=== PATIENT | female | born 1980 | race Caucasian/White ===

== ENCOUNTER → 2017-01-06 | Outpatient (CLI) | payer OTHER | LOC: CIMAGING 08:15 | PROVIDERS: ATTEND Physician Assistant Medical | DX: R10.10 Upper abdominal pain, unspecified (principal); R16.0 Hepatomegaly, not elsewhere classified; Z90.3 Acquired absence of stomach [part of] | CPT/HCPCS: 76700-PO ==

== ENCOUNTER → 2017-04-01 | Outpatient (CLI) | payer OTHER | LOC: CIMAGING 14:33 | PROVIDERS: ATTEND Family Medicine | DX: Z12.31 Encounter for screening mammogram for malignant neoplasm of breast (principal); Z80.3 Family history of malignant neoplasm of breast | CPT/HCPCS: G0202 ==

== ENCOUNTER 2017-11-04 12:09 | Emergency (ER) | payer OTHER ==
[2017-11-04 12:20] VITALS: RESP 16; TEMP 98.2; O2SAT 98
--- NOTE | 2017-11-04 13:29 | EDPHY ---
H & P Time Seen by Provider: 11/04/17 12:28 HPI/ROS: HPI Left calf pain. Concerned about DVT. 37-year-old female by private vehicle. This patient has a history of a superficial thrombophlebitis involving the medial aspect of her left upper calf area diagnosed in June of this year. She had a negative D-dimer at that time. She presents with atraumatic left upper calf pain and popliteal fossa pain which is worse with walking since yesterday. ROS: Constitutional: No fever, no chills. No weakness. Respiratory: No cough. No shortness of breath. Cardiac: No chest pain, no palpitations. Musculoskeletal: No back pain. No neck pain. As above. Skin: No rashes. Neurological: No focal weakness or altered sensation. Past medical history: As above. Social history: Nonsmoker. No alcohol. Works here at the hospital. Physical Exam: General Appearance: Alert, no distress. This patient is responding to questions appropriately and in full sentences. This patient appears well- hydrated and well-nourished. Eyes: Pupils equal and round no pallor or injection. No lid edema, erythema or injection. Left lower extremity exam: She does have some vague ache tenderness on palpation proximal lateral calf musculature into the popliteal fossa. No soft tissue swelling, erythema, ecchymosis noted to this area. Negative Collette sign. There is no asymmetric swelling in comparison to the right lower extremity. Left lower extremity is neurovascularly intact. Neurological: Motor sensory function is grossly intact. Cranial nerves are normal. Gait is normal. Skin: Warm and dry, no rashes. Musculoskeletal: Neck is supple and nontender. Extremities are symmetrical. All joints range without pain or impingement. Psychiatric: No agitation. No depression. Database: EKG: Imaging: Left lower extremity ultrasound for DVT: Negative for DVT, thrombophlebitis, Plummer cyst. Results were discussed with staff radiologist Dr. Delta Niocle. Procedures: Emergency department course: Vital signs reviewed. She is moderately hypertensive. Vital signs otherwise normal. She was sent for left lower extremity ultrasound. 1:55 p.m., patient re-evaluated. Resting comfortably at this time. Results of ultrasound discussed with her. Diagnosis of exclusion is a calf musculature strain. Conservative management was discussed with her. Ibuprofen dosing reviewed. She feels comfortable going home. Follow-up and return to emergency department precautions discussed. All of her questions were answered. She was discharged in good condition. Differential Diagnosis: The differential diagnosis on this patient includes but is not limited to DVT, calf musculature to strain. Ligamentous injury, bony injury, infectious etiology unlikely. This represents a partial list of diagnoses considered. These considerations are based on history, physical exam, past history, reassessment and diagnostic testing. Smoking Status: Former smoker Constitutional: Initial Vital Signs Temperature (C) 36.8 C 11/04/17 12:17 Heart Rate 82 11/04/17 12:17 Respiratory Rate 16 11/04/17 12:17 Blood Pressure 151/96 H 11/04/17 12:17 O2 Sat (%) 98 11/04/17 12:17 O2 Delivery Mode Room Air Allergies/Adverse Reactions: metoclopramide HCl [From Reglan] Allergy (Intermediate, Verified 11/04/17 12:22) Anxiety lithium Allergy (Verified 11/04/17 12:22) Rash Sulfa (Sulfonamide Antibiotics) Allergy (Verified 11/04/17 12:22) Hives iv contrast Allergy (Uncoded 11/04/17 12:22) Dyspnea Home Medications: Medication Instructions Recorded traZODone [traZODONE 50MG (RX)] 50 mg PO HS 09/19/14 Abilify 04/15/16 CLONAZEPAM 04/15/16 LaMICtal 04/15/16 Lowestrol Bcp 04/15/16 Wellbutrin Sr 11/04/17 Medical Decision Making - Diagnostics Imaging Results: Imaging Impressions Extremity Venous Study 11/04/17 12:52 Impression: There is no sonographic evidence of deep or superficial vein thrombosis in the left lower extremity. Findings were discussed with Jeannie Chowdhury MD at 13:32, on 2016. Departure - Departure Disposition: Home, Routine, Self-Care Clinical Impression: Strain of calf muscle Condition: Good Instructions: Muscle Strain (ED) Additional Instructions: Read and follow provided instructions. Follow-up with your primary care physician in 2-3 days for re-evaluation as needed. Ibuprofen dosin mg every 6 hours with meals for the next 3 days only. Take only as needed for pain. Return to the emergency department for worsening symptoms or other serious concerns. Referrals: Judy Elaine [Primary Care Provider] - As per Instructions
[2017-11-04] MEDS ORDERED: ONDANSETRON 4 MG/2 ML VIAL IVP ONE (13:50)
[2017-11-04 14:07] VITALS: BP 115/74; PULSE 86
== END 2017-11-04 14:05 | disposition home or self-care (01) ==
LOC: CED 12:09
DX: S86.912A Strain of unspecified muscle(s) and tendon(s) at lower leg level, left leg, initial encounter (principal); Z87.891 Personal history of nicotine dependence; X58.XXXA Exposure to other specified factors, initial encounter
CPT/HCPCS: 93971-PO

== ENCOUNTER → 2018-10-17 | Outpatient (CLI) | payer OTHER | LOC: CIMAGING 14:31 | PROVIDERS: ATTEND Family Medicine | DX: Z12.31 Encounter for screening mammogram for malignant neoplasm of breast (principal) ==

== ENCOUNTER → 2018-11-28 | Outpatient (CLI) | payer BC | LOC: CIMAGING 13:01 | PROVIDERS: ATTEND Family Medicine | DX: N20.0 Calculus of kidney (principal); R50.9 Fever, unspecified; Z90.49 Acquired absence of other specified parts of digestive tract; Z98.84 Bariatric surgery status | CPT/HCPCS: 74018-PO ==

== ENCOUNTER → 2019-03-05 | Outpatient (CLI) | payer BC | LOC: CIMAGING 14:20 | PROVIDERS: ATTEND Physician Assistant Medical | DX: R51 Headache (principal); M54.2 Cervicalgia; M62.81 Muscle weakness (generalized); I82.4Z1 Acute embolism and thrombosis of unspecified deep veins of right distal lower extremity; Z79.01 Long term (current) use of anticoagulants | CPT/HCPCS: 70450-PO ==

== ENCOUNTER 2019-04-02 09:04 | Emergency (ER) | payer BC ==
--- NOTE | 2019-04-02 10:14 | EDPHY ---
H & P Time Seen by Provider: 04/02/19 09:11 HPI/ROS: CHIEF COMPLAINT: Right leg pain HISTORY OF PRESENT ILLNESS: Patient recently diagnosed with a right lower extremity DVT on March 01 at the [facility] free-standing emergency department. She was started on Xarelto and has not yet had follow-up with Dr. Calloway, hematology. She was evaluated for factor 5 Leiden which was negative. No other risk factors for DVT including control, cancer history, long haul travel, smoking or known. She states she noticed this pain on her right leg this morning and it feels "same kind of pain as February". She denies chest pain or shortness of breath. She has been compliant with her anticoagulation medication. She denies any known trauma. She did recently go from 15 mg of Xarelto twice a day to 20 mg of Xarelto once a day. REVIEW OF SYSTEMS: Constitutional: No fever, no chills. Eyes: No discharge. ENT: No sore throat. Cardiovascular: No chest pain, no palpitations. Respiratory: No cough, no shortness of breath. Gastrointestinal: No abdominal pain, no vomiting. Genitourinary: No dysuria. Musculoskeletal: No back pain. Skin: No rashes. Neurological: No headache. General Appearance: Alert, no distress. Eyes: Pupils equal and round no pallor or injection. ENT, Mouth: Mucous membranes moist. Respiratory: There are no retractions, lungs are clear to auscultation. Cardiovascular: Regular rate and rhythm. Gastrointestinal: Abdomen is soft and nontender, no masses, bowel sounds normal. Neurological: Awake, alert, no focal neurologic deficits. Skin: Warm and dry, no rashes. Musculoskeletal: Neck is supple nontender. Extremities are symmetrical, full range of motion, no edema. Normal peripheral pulses. Some areas of ecchymosis to the mid medial calf with mild tenderness to palpation. Psychiatric: Patient is oriented X 3, there is no agitation. Medical/surgical history: DVT as per HPI, asthma, kidney stones. Social history: Nonsmoker Smoking Status: Former smoker Constitutional: Initial Vital Signs Heart Rate 82 04/02/19 09:17 Respiratory Rate 14 04/02/19 09:17 Blood Pressure 123/81 H 04/02/19 09:17 O2 Sat (%) 99 04/02/19 09:17 O2 Delivery Mode Room Air Allergies/Adverse Reactions: metoclopramide HCl [From Reglan] Allergy (Intermediate, Verified 04/02/19 09:14) Anxiety lithium Allergy (Verified 04/02/19 09:14) Rash Sulfa (Sulfonamide Antibiotics) Allergy (Verified 04/02/19 09:14) Hives iv contrast Allergy (Uncoded 11/04/17 12:22) Dyspnea Home Medications: Medication Instructions Recorded traZODone [traZODONE 50MG (RX)] 50 mg PO HS 09/19/14 Abilify 04/15/16 CLONAZEPAM 04/15/16 LaMICtal 04/15/16 Wellbutrin Sr 11/04/17 Medical Decision Making - Diagnostics Imaging Results: Imaging Impressions Extremity Venous Study 04/02/19 09:40 Impression: 1. Currently no evidence for residual DVT. 2. Suspect small hemorrhage or edema in the gastroc muscle. Results discussed with Dr. Meneses at 10:14 AM. Imaging: Discussed imaging studies w/ will call clerk Radiologist Differential Diagnosis: Differential diagnosis includes but is not limited to recurrent DVT, trauma, muscle tear, superficial thrombophlebitis. After evaluation no evidence of residual or new deep vein thrombosis noted. Likely mild muscle tear or inflammation. Also no evidence of residual profundus clot. Recommended patient obtain images from her ultrasound performed in February and follow up with Dr. Pro, hematology, as scheduled. Will continue Xarelto. Understands return precautions. Stable for discharge. Departure - Departure Clinical Impression: Pain of right calf Condition: Good Instructions: Leg Pain (ED) Additional Instructions: Follow-up with Dr. Pro and your primary care physician as discussed. I recommend you get the CD of your previous ultrasound of your right leg performed at the [facility]. Referrals: Judy Elaine [Primary Care Provider] - As per Instructions
[2019-04-02 10:49] VITALS: BP 111/77
== END 2019-04-02 10:47 | disposition home or self-care (01) ==
LOC: CED 09:04
DX: M79.661 Pain in right lower leg (principal); Z87.891 Personal history of nicotine dependence; Z79.01 Long term (current) use of anticoagulants
CPT/HCPCS: 93971-PO; 99284-ER

== ENCOUNTER → 2019-04-30 | Outpatient (CLI) | payer BC | LOC: CIMAGING 15:30 ==

== ENCOUNTER → 2019-05-03 | Outpatient (CLI) | payer BC | LOC: EMCIMAGING 09:18 ==